=== PATIENT | female | born 1995 | race Caucasian/White ===

== ENCOUNTER 2017-04-28 10:20 | Emergency (ER) | payer SELFPAY ==
[2017-04-28 10:29] VITALS: BP 125/56; PULSE 110; RESP 16; TEMP 98.6; O2SAT 98
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
== END 2017-04-28 11:15 | disposition home or self-care (01) ==
DX: S20.219A Contusion of unspecified front wall of thorax, initial encounter (principal); K52.9 Noninfective gastroenteritis and colitis, unspecified; V89.2XXA Person injured in unspecified motor-vehicle accident, traffic, initial encounter